=== PATIENT | female | born 1950 | race Caucasian/White ===

== ENCOUNTER 2024-07-24 10:07 | Emergency (ER) | payer MEDICARE, OTHER, SELFPAY ==
[2024-07-24 10:13] VITALS: BP 171/76; PULSE 84; RESP 26; TEMP 36.6; O2SAT 92; BMI 34.5
--- NOTE | 2024-07-24 10:39 | ECG_ITS ---
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
--- NOTE | 2024-07-24 10:39 | XR_ITS ---
WS: [id number] PORTABLE CHEST HISTORY: dyspnea/cough COMPARISON: None available. Mild pulmonary hyperexpansion. Elevated RIGHT hemidiaphragm. Focal linear opacification and tethering in the medial RIGHT lower lobe. There is additional linear stranding extending superiorly towards the RIGHT pleura. 5 mm nodule partially obscured by the LEFT heart shadow. No pleural effusion or pneu mothorax. Cardiac size: Moderately enlarged cardiac silhouette. Mediastinum/Aorta: Moderate atherosclerosis aorta. No osseous abnormality seen. XR/XR chest 1V portable [id number] IMPRESSION: 1. Linear opacification with scarring and pleural tethering extending superior laterally from the RIGHT medial lower lung field. Recommend follow-up chest CT with IV contrast. This may be scar formation but neoplasm needs to be excluded . No prior studies for comparison. 2. Additional 5 mm nodule partially obscured by the LEFT heart shadow. May be calcified granuloma but also should be further evaluated by CT.
[2024-07-24 10:53] VITALS: BP 149/70
--- NOTE | 2024-07-24 10:53 | ED_ITS ---
HPI - SOB/Dyspnea 2 General: Chief Complaint: Shortness of Breath/Dyspnea Stated Complaint: fatigue, cough, aches all over, sob with activity Time Seen by Provider: 07/24/24 10:39 History of Present Illness: HPI Narrative: 74-year-old female presents to the emerg ency room with cough generalized shortness of breath with productive cough. Patient recently hospitalized for pneumonia at [facility] nurse at [place]. She was discharged from there on June 27 on doxycycline and Zithromax. She complains of falling frequently as well. She does not get chest pain or dizziness but just feels like she does have the strength to hold herself up. Her biggest complaint today is of generalized weakness. Patient is diabetic has a history of coronary artery disease previous stenting no previous strokes. She tells me she also has a Thang filter in place and has had DVTs and PEs she states she is still taking Eliquis but is not on her current medication list Associated symptoms: Reports chest congestion; Deny abdominal pain, chest pain or fever(s) Related Data Previous Rx's ?Medication ?Instructions ?Recorded methylprednisolone 4 mg tablets in See Rx Instructions PO .COMPLEX 07/24/24 a dose pack (Medrol (Carlos)) #21 ea Allergies Allergy/AdvReac Type Severity Reaction Status Date / Time No Known Allergies Allergy Verified 07/24/24 10:19 Review of Systems 2 Const: Denies: fever(s) or chills Card: Reports: edema and swelling of feet/ankles; Denies: chest pain Resp: Reports: dyspnea, productive cough, wheezing and chest congestion GI: Denies: abdominal pain : Denies: dysuria, urinary frequency or urinary urgency Musc: Denies: neck pain or back pain Skin/Breast: Denies: rash Physical Exam 2 Const: COMMON NORMALS: no acute distress GENERAL APPEARANCE: cooperative and comfortable ORIENTATION/CONSCIOUSNESS: Yes awake, Yes oriented to person, Yes oriented to place and Yes oriented to time HENMT: COMMON NORMALS: normocephalic, atraumatic and hearing grossly normal bilaterally HEAD & SCALP: normocephalic and atraumatic Resp: COMMON NORMALS: normal respiratory effort, No retractions, No use of accessory muscles and clear to auscultation bilaterally AUSCULTATION: clear to auscultation bilaterally Cardio: COMMON NORMALS: regular rate, regular rhythm and No murmurs present (Cardio) RATE: regular rate RHYTHM: regular rhythm GI: COMMON NORMALS: Soft to palpation and No hepatosplenomegaly present A USCULTATION: Yes normoactive bowel sounds PALPATION: Yes Soft to palpation, No Tenderness to palpation present (GI), No Guarding due to palpation present (GI) and Yes No hepatosplenomegaly present Extremity: COMMON NORMALS: normal to inspection, capillary refill normal, no clubbing, cyanosis or edema, no calf tenderness and no pedal edema Neuro: SENSORIUM/ORIENTATION: Yes oriented to person, Yes oriented to place and Yes oriented to time Skin: COMMON NORMALS: no rashes or lesions noted GENERAL SKIN EXAM: no rashes or lesions noted Course 2 Vital Signs: Vital signs: Vital Signs Temperature 97.9 F 07/24/24 10:13 Pulse Rate 84 07/24/24 10:13 Respiratory Rate 26 H 07/24/24 10:13 Blood Pressure 149/70 07/24/24 10:53 Pulse Oximetry 92 07/24/24 10:13 Oxygen Delivery Me thod Room Air 07/24/24 10:13 MDM - SOB/Dyspnea Medical Decision Making Labs and imaging reviewed. Patient is not has some chronic anemia there is no acute findings and no infiltrates no PE. She has some chronic underlying disease that she attributes to the previous COVID infection and is chronically on oxygen. Suspect she is still recovering from the sequela of this most recent infection there is no sign of recurrent or persistent infection did not recommend another round of antibiotics. Continue on her current medication regimen we will add a Medrol Dosepak to taper off of and have her follow-up with her primary care doctor she may need to have further evaluation of her pulmonology and cardiac status including PFTs or possible echocardiogram. Medical Records I reviewed the patient's medical records. Lab Data I reviewed the patient's lab results. 07/24/24 11:00 07/24/24 11:00 Labs/Radiology: Radiology Impressions Chest X-Ray 07/24/24 10:39 IMPRESSION: 1. Linear opacification with scarring and pleural tethering extending superior laterally from the RIGHT medial lower lung field. Recommend follow-up chest CT with IV contrast. This may be scar formation but neoplasm needs to be excluded. No prior studies for comparison. 2. Additional 5 mm nodule partially obscured by the LEFT heart shadow. May be calcified granuloma but also should be further evaluated by CT. Chest CTA 07/24/24 12:11 IMPRESSION: 1. No pulmonary embolism. 2. Elevated RIGHT hemidiaphragm. 3. Previously noted area of increased density in the RIGHT lung corresponds to partial RIGHT middle lobe atelectasis. 4. RIGHT lower lobe 4.5 mm noncalcified pulmonary nodule. Recommend follow-up chest CT in 6 months. 5. Suspect cholelithiasis without evidence for acute cholecystitis. If this can be further evaluated by ultrasound. Laboratory Results WBC 6.95 10^3/uL (3.29-11.43) 07/24/24 11:00 RBC 3.47 10^6/uL (3.85-5.65) L 07/24/24 11:00 Hgb 10.40 g/dL (11.27-16.99) L 07/24/24 11:00 Hct 33.7 % (36-47) L 07/24/24 11:00 MCV 97.1 fl (85-98) 07/24/24 11:00 MCH 30.0 pg (27-33) 07/24/24 11:00 MCHC 30.9 g/dL (30-55) 07/24/24 11:00 RDW 14.6 % (12.1-15.1) 07/24/24 11:00 Plt Count 230 10^3/cmm (157-399) 07/24/24 11:00 MPV 9.8 fL (7.4-10.4) 07/24/24 11:00 Neut % (Auto) 74.8 % 07/24/24 11:00 Lymph % (Auto) 15.4 % 07/24/24 11:00 [place] % (Auto) 6.6 % 07/24/24 11:00 Eos % (Auto) 2.4 % 07/24/24 11:00 Baso % (Auto) 0.4 % 07/24/24 11:00 Neut # (Auto) 5.19 10^3/uL (1.8-7.7) 07/24/24 11:00 Lymph # (Auto) 1.1 10^3/uL (0.8-4.8) 07/24/24 11:00 [place] # (Auto) 0.5 10^3/uL (0.2-0.9) 07/24/24 11:00 Eos # (Auto) 0.2 10^3/uL (0.0-0.8) 07/24/24 11:00 Baso # (Auto) 0.0 10^3/uL (0.0-0.1) 07/24/24 11:00 Nucleated RBC % (auto) 0 % 07/24/24 11:00 Nucleated RBCs # 0.0 /100WBC 07/24/24 11:00 Sodium 139 mmol/L (136-145) 07/24/24 11:00 Potassium 4.4 mmol/L (3.5-5.1) 07/24/24 11:00 Chloride 100 mmol/L (98-107) 07/24/24 11:00 Carbon Dioxide 27 mmol/L (22-29) 07/24/24 11:00 Anion Gap 16.4 (5-19) 07/24/24 11:00 BUN 21 mg/dL (8-23) 07/24/24 11:00 Creatinine 1.0 mg/dL (0.5-0.9) H 07/24/24 11:00 GFR Calculation Not Reportable 07/24/24 11:00 Glucose 105 mg/dL (65-115) 07/24/24 11:00 Calculated Osmolality 291 mOsm/kg (285-295) 07/24/24 11:00 Lactic Acid 0.8 mmol/L (0.5-2.2) 07/24/24 11:00 Calcium 8.9 mg/dL (8.5-10.5) 07/24/24 11:00 Total Bilirubin 0.2 mg/dL (0.15-1.2) 07/24/24 11:00 AST 15 U/L (0-32) 07/24/24 11:00 ALT 11 U/L (0-33) 07/24/24 11:00 Alkaline Phosphatase 145 U/L (35-105) H 07/24/24 11:00 Troponin T Baseline 11 ng/L (0-10) H 07/24/24 11:00 Troponin T 120 Minute 10.24 ng/L (0-10) H 07/24/24 12:54 Delta Troponin T -0.76 ABS# (0-10) L 07/24/24 12:54 C-Reactive Protein 60.5 mg/L (0.0-4.9) H 07/24/24 11:00 NT-Pro-B Natriuret Pep 846 pg/mL (0-450) H 07/24/24 11:00 Total Protein 6.6 g/dL (6.6-8.7) 07/24/24 11:00 Albumin 3.6 g/dL (3.5-5.2) 07/24/24 11:00 Globulin 3.0 g/dL (1.3-4.6) 07/24/24 11:00 Urine Color Dark yellow (Yellow) A 07/24/24 11:10 Urine Appearance Clear (CLEAR) 07/24/24 11:10 Urine pH 5.0 (5-7) 07/24/24 11:10 Ur Specific [place] 1.022 (1.005-1.030) 07/24/24 11:10 Urine Protein Trace (Negative) A 07/24/24 11:10 Urine Glucose (UA) Negative (Normal) 07/24/24 11:10 Urine Ketones Trace (Negative) 07/24/24 11:10 Urine Blood Negative (Negative) 07/24/24 11:10 Urine Nitrate Negative (Negative) 07/24/24 11:10 Urine Bilirubin Negative (Negative) 07/24/24 11:10 Urine Urobilinogen 1.0 mg/dL (Negative) 07/24/24 11:10 Ur Leukocyte Esterase 1+ (Negative) A 07/24/24 11:10 Urine RBC 0-2 /hpf (0-2) 07/24/24 11:10 Urine WBC 11-20 /hpf (0-5) H 07/24/24 11:10 Ur Squamous Epith Cells 6-10 /hpf (0-5) 07/24/24 11:10 Amorphous Sediment Not Reportable 07/24/24 11:10 Urine Bacteria None seen /hpf (NONE) 07/24/24 11:10 Hyaline Casts 1.65 /lpf 07/24/24 11:10 Influenza A (PCR) Negative (Negative) 07/24/24 10:50 Influenza Type B (PCR) Negative (Negative) 07/24/24 10:50 RSV (PCR) Negative (Negative) 07/24/24 10:50 SARS-CoV-2 (PCR) Negative (Negative) 07/24/24 10:50 All radiology interpretation(s) finalized by discharge Discharge Plan Discharge Patient Disposition: Home Clinical Impression: Dyspnea, Fatigue Condition: Stable Prescriptions: New methylprednisolone [Medrol (Carlos)] 4 mg tablets,dose pack See Rx Instructions .ROUTE .COMPLEX Qty: 21 0RF Rx Instructions: orally per package directions Discharge Orders: Discharge ED (Routine); Ordered 07/24/24 Ordered By: Deni Allen Referrals: Brooks Johnson MD [Primary Care Provider, Unknown] Discharge Diet: Usual diet Discharge Activity: Resume usual activity Patient Instructions: Opioid Safety, Pain Management Activity Restrictions/Additional Instructions: Thank you for choosing [facility] for your healthcare needs today. It is very important that you follow up as instructed or that you return to the Emergency Department should you have concerns or if your condition changes or worsens in any way. You were seen in the emergency room with complaints of shortness of breath. Laboratory studies and imaging did not show any acute findings. Suspect that some of your symptoms are due to your history of chronic lung issues. No evidence of persistent or recurrent infection. At this point can discharge home recommend a short course of steroids and follow-up with your primary care doctor you may need further evaluation with pulmonology and cardiology in the future. Print Language: Wolof Coding Level of Care Code ED Ammonium Sulfate Operator for Elinor Payne
[2024-07-24 11:24] LABS: Bilirubin Urine Negative (Negative); Blood Urine Negative (Negative); Glucose Urine UA Negative (Normal); Ketones Urine Trace (Negative); Leukocyte Esterase Urine 1+ (Negative); Nitrate Urine Negative (Negative); Protein Urine Trace (Negative); Specific Gravity, Urine 1.022 (1.005-1.030); Urine Appearance Clear (CLEAR); Urine Color Dark Yellow (Yellow)
[2024-07-24 11:26] LABS: Add Urine Microscopic? YES; Bacteria Urine None Seen /hpf; Hyaline Casts Urine 1.65 /lpf; RBC Urine 0-2 /hpf (0-2)
[2024-07-24 11:33] LABS: Influenza A NEGATIVE (Negative); Influenza B NEGATIVE (Negative); Respiratory Syncytial Virus Ce NEGATIVE (Negative); SARS-CoV-2 PCR NEGATIVE (Negative)
[2024-07-24 11:35] LABS: Basophils % 0.4 %; Eosinophils # 0.2 10^3/uL (0.0-0.8); Eosinophils % 2.4 %; Hematocrit 33.7 % (36-47); Lymphocytes # 1.1 10^3/uL (0.8-4.8); Lymphocytes % 15.4 %; Mean Corpuscular HGB Conc 30.9 g/dL (30-55); Mean Corpuscular Volume 97.1 fl (85-98); Mean Platelet Volume 9.8 fL (7.4-10.4); Monocytes # 0.5 10^3/uL (0.2-0.9); Monocytes % 6.6 %; Neutrophils # 5.19 10^3/uL (1.8-7.7); Neutrophils % 74.8 %; Nucleated Red Blood Cells % 0 %; Platelet Count 230 10^3/cmm (157-399); Red Blood Count 3.47 10^6/uL (3.85-5.65); Red Cell Distribution Width 14.6 % (12.1-15.1); White Blood Count 6.95 10^3/uL (3.29-11.43)
[2024-07-24 11:53] LABS: Lactic Sepsis W/Reflex 0.8 mmol/L (0.5-2.2); Troponin(5th) Baseline 11 ng/L (0-10)
[2024-07-24 12:06] LABS: Alanine Aminotransferase 11 U/L (0-33); Albumin Level 3.6 g/dL (3.5-5.2); Alkaline Phosphatase 145 U/L (35-105); Anion Gap 16.4 (5-19); Aspartate Amino Transferase 15 U/L (0-32); Blood Urea Nitrogen 21 mg/dL (8-23); C Reactive Protein 60.5 mg/L (0.0-4.9); Calcium 8.9 mg/dL (8.5-10.5); Carbon Dioxide 27 mmol/L (22-29); Chloride 100 mmol/L (98-107); Creatinine Clr Calc Pharmacy 56.2191; Glucose 105 mg/dL (65-115); NT Pro B Type Natriuretic Pept 846 pg/mL (0-450); Osmolality Calculated 291 mOsm/kg (285-295); Potassium 4.4 mmol/L (3.5-5.1); Sodium 139 mmol/L (136-145); Total Bilirubin 0.2 mg/dL (0.15-1.2); Total Protein 6.6 g/dL (6.6-8.7)
--- NOTE | 2024-07-24 12:11 | CT_ITS ---
WS: [id number] CT CHEST ANGIOGRAPHY WITH REFORMATS HISTORY: Dyspnea cough abnormal chest x-ray history PE TECHNIQUE: Contiguous axial images are obtained through the chest during arterial injection of intravenous contrast. Images are reconstructed to evaluate the pulmonary arteries. MIP imaging also reviewed. All CT scans at [facility] use at least one of these dose optimization techniques: automated exposure control; mA and/or kV adjustment per patient size (includes targeted exams where dose is matched to clinical indication); or iterative reconstruction. CONTRAST: Omnipaque 350; 100 mL IV. DLP: 541.96 mGy.cm COMPARISON: Radiograph 07/24/2024 Very slightly enlarged pulmonary artery. No filling defect or pulmonary embolism. Mild atherosclerosis aorta. No aneurysms. No RIGHT heart strain. No pericardial or pleural effusions. Area of increased density noted on the recent radiograph corresponds to atelectasis in the medial RIGHT middle lobe. Elevated RIGHT diaphragm resulting in volume loss and crowding of lung markings. 4.5 mm noncalcified nodule RIGHT lower lobe. Benign granuloma LEFT lung base. No mediastinal or hilar adenopathy. Small hiatal hernia. No adrenal mass. Increased attenuation in the gallbladder. Suspect cholelithiasis. No evidence for acute cholecystitis. CT/CT angio chest PE protcl [id number] IMPRESSION: 1. No pulmonary embolism. 2. Elevated RIGHT hemidiaphragm. 3. Previously noted area of increased density in the RIGHT lung corresponds to partial RIGHT middle lobe atelectasis. 4. RIGHT lower lobe 4.5 mm noncalcified pulmonary nodule. Recommend follow-up chest CT in 6 months. 5. Suspect cholelithiasis without evidence for acute cholecystitis. If this ca n be further evaluated by ultrasound.
--- NOTE | 2024-07-24 12:40 | ECG_ITS ---
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
[2024-07-24] MEDS: iohexol 350 mg/mL 500 mL Btl (per mL) IV (12:42)
[2024-07-24 13:38] LABS: Troponin 5 2HR 10.24 ng/L (0-10)
[2024-07-24 13:43] LABS: Troponin 5 2HR Delta -0.76 ABS# (0-10)
[2024-07-24 14:36] VITALS: BP 141/72; PULSE 81; O2SAT 96
== END 2024-07-24 14:36 | disposition home or self-care (01) ==
PROVIDERS: Emergency Provider Family Medicine; PCP Internal Medicine
DX: R06.00 Dyspnea, unspecified (principal); R53.83 Other fatigue; E11.9 Type 2 diabetes mellitus without complications; I25.10 Atherosclerotic heart disease of native coronary artery without angina pectoris; Z95.5 Presence of coronary angioplasty implant and graft; Z79.01 Long term (current) use of anticoagulants; Z86.718 Personal history of other venous thrombosis and embolism; Z86.711 Personal history of pulmonary embolism; Z11.52 Encounter for screening for COVID-19
CPT/HCPCS: 36415; 71045; 71275; 80053; 81001; 83605; 83880; 84484; 85025; 86140; 87040; 87637; 93005; 99285